=== PATIENT | male | born 1965 | race Caucasian/White ===

== ENCOUNTER 2021-11-07 15:02 | Inpatient (IN) | payer OTHER ==
[~2021-11-07] VITALS: Ht 188 cm; Wt 128.5 kg
[2021-11-07 15:18] VITALS: BP 125/90
[2021-11-07] MEDS ORDERED: PROVENTIL HFA6.7 GM INH (15:18)
[2021-11-07 16:47] VITALS: BP 133/79
[2021-11-07 17:25] LABS: ACT PARTIAL THROMBO TIME 24.9 SECONDS (20.0-32.1)
[2021-11-07 17:59] VITALS: BP 112/66
[2021-11-07 19:42] VITALS: BP 127/78
[2021-11-08 04:18] VITALS: BP 124/76
[2021-11-08 05:03] LABS: ALBUMIN 2.2 gm/dl (3.1-4.5); ALKALINE PHOSPHATASE 60 U/L (45-117); BUN 18 mg/dl (7-24); CHLORIDE 110 mmol/L (98-107); CHOLESTEROL 114 mg/dL (<200); LDL CHOLESTEROL 66 mg/dL (9-159); POTASSIUM 4.2 mmol/L (3.5-5.1); SGOT/AST 62 IU/L (3-35); SGPT/ALT 88 U/L (12-78); SODIUM 140 mmol/L (136-145); TOTAL PROTEIN 5.9 gm/dL (6.4-8.2); TRIGLYCERIDES 61 mg/dl (<150)
[2021-11-08 05:08] LABS: FREE T4 1.13 ng/dl (0.76-1.46)
[2021-11-08 06:00] LABS: BASO % 0.2 % (0.0-1.0); EOS # 0.2 10*3/uL (0.0-0.4); EOS % 1.9 % (1.0-4.0); HEMATOCRIT 37.4 % (42.0-52.0); LYMPH # 2.5 10*3/uL (1.3-4.4); LYMPH % 19.9 % (27.0-41.0); MEAN CELL VOLUME 93.7 fl (80.0-94.0); MEAN CORPUSCULAR HGB 30.8 pg (27.0-31.0); MEAN CORPUSCULAR HGB CONC 32.9 g/dl (33.0-37.0); MEAN PLATELET VOLUME 9.6 fl (9.6-12.3); MONO # 1.4 10*3/uL (0.1-1.0); MONO % 11.5 % (3.0-9.0); NEUT # 8.2 10*3/uL (2.3-7.9); NEUT % 65.6 % (47.0-73.0); PLATELET COUNT AUTOMATED 343 10*3/uL (130-400); RED BLOOD COUNT 3.99 10*6/uL (4.50-5.90); WHITE BLOOD COUNT 12.5 10*3/uL (4.8-10.8)
[2021-11-08 06:35] LABS: ACT PARTIAL THROMBO TIME 26.7 SECONDS (20.0-32.1); INTERNATIONAL NORM RATIO 0.9 (2.0-3.5)
[2021-11-08 07:49] LABS: VITAMIN D, 25-HYDROXY 12.8 ng/mL (30-100)
[2021-11-08 09:45] VITALS: BP 108/78
[2021-11-08 14:50] VITALS: BP 126/78
[2021-11-08 17:00] VITALS: BP 128/79
[2021-11-08 17:05] VITALS: BP 125/73
[2021-11-08 20:00] VITALS: BP 132/75
[2021-11-09] VITALS: BP 114/72
[2021-11-09 06:49] LABS: ALBUMIN 2.3 gm/dl (3.1-4.5); ALKALINE PHOSPHATASE 69 U/L (45-117); BUN 15 mg/dl (7-24); CHLORIDE 104 mmol/L (98-107); POTASSIUM 4.3 mmol/L (3.5-5.1); SGOT/AST 53 IU/L (3-35); SGPT/ALT 103 U/L (12-78); SODIUM 137 mmol/L (136-145); TOTAL PROTEIN 6.2 gm/dL (6.4-8.2)
[2021-11-09 07:02] LABS: BASO % 0.3 % (0.0-1.0); EOS # 0.5 10*3/uL (0.0-0.4); HEMATOCRIT 39.2 % (42.0-52.0); LYMPH # 2.2 10*3/uL (1.3-4.4); LYMPH % 18.3 % (27.0-41.0); MEAN CELL VOLUME 94.5 fl (80.0-94.0); MEAN CORPUSCULAR HGB 31.1 pg (27.0-31.0); MEAN CORPUSCULAR HGB CONC 32.9 g/dl (33.0-37.0); MEAN PLATELET VOLUME 9.4 fl (9.6-12.3); MONO # 1.5 10*3/uL (0.1-1.0); MONO % 12.2 % (3.0-9.0); NEUT # 7.8 10*3/uL (2.3-7.9); NEUT % 64.1 % (47.0-73.0); PLATELET COUNT AUTOMATED 379 10*3/uL (130-400); RED BLOOD COUNT 4.15 10*6/uL (4.50-5.90); RED CELL DISTRI WIDTH 11.9 % (0-14.5); WHITE BLOOD COUNT 12.1 10*3/uL (4.8-10.8)
[2021-11-09 08:00] VITALS: BP 122/76
[2021-11-09 11:03] VITALS: BP 126/78
[2021-11-09 12:56] LABS: BODY FLUID WBC 2568 /uL
[2021-11-09] MEDS ORDERED: NATURE'S BLEND F1 MG PO (13:15)
[2021-11-09] MEDS ORDERED: CEFTRIAXONE1 GM IJ (13:15)
[2021-11-09] MEDS ORDERED: PREMIERPRO RX500 M3 IV (13:15)
[2021-11-09] MEDS ORDERED: VITAMIN D3125 MC1 PO (13:15)
[2021-11-09 14:00] LABS: BF LYMPHOCYTES 76 %; BF MACROPHAGES 5 %; BF NEUTROPHILS 19 %
[2021-11-09 16:00] VITALS: BP 134/83
[2021-11-10 10:08] LABS: ACID FAST SPEC PROCESSING Direct Inoculation (.)
== END 2021-11-09 18:44 | disposition short-term general hospital (02) | DRG 871 ==
LOC: ED 15:02 → EDHOLD 17:24 → 5E 17:24
PROVIDERS: Emergency Medicine; Hospitalist; Internal Medicine; Internal Medicine Critical Care Medicine; ADMIT Family Medicine; ATTEND Family Medicine
PROC: 0W9900Z Drainage of Right Pleural Cavity with Drainage Device, Open Approach (ICD-10-PCS; principal; 2021-11-09)
DX: A41.9 Sepsis, unspecified organism (principal); J18.9 Pneumonia, unspecified organism; J96.01 Acute respiratory failure with hypoxia; E44.0 Moderate protein-calorie malnutrition; J90 Pleural effusion, not elsewhere classified; F17.210 Nicotine dependence, cigarettes, uncomplicated; E66.9 Obesity, unspecified; E61.1 Iron deficiency; E55.9 Vitamin D deficiency, unspecified; R73.9 Hyperglycemia, unspecified; J45.20 Mild intermittent asthma, uncomplicated; E87.8 Other disorders of electrolyte and fluid balance, not elsewhere classified; Z68.35 Body mass index [BMI] 35.0-35.9, adult; Z80.1 Family history of malignant neoplasm of trachea, bronchus and lung; Z79.51 Long term (current) use of inhaled steroids

== ENCOUNTER 2024-12-03 11:55 | Inpatient (IN) | payer OTHER ==
[~2024-12-03] VITALS: Ht 188 cm; Wt 129.8 kg
[~2024-12-03 11:55] MED LIST: CEFTRIAXONE1 GM IJ; NATURE'S BLEND F1 MG PO; PREMIERPRO RX500 M3 IV; PROVENTIL HFA6.7 GM INH; VITAMIN D3125 MC1 PO
[2024-12-03 12:00] VITALS: BP 96/56
[2024-12-03 12:31] LABS: HEMATOCRIT 38.8 % (42.0-52.0); MEAN CELL VOLUME 107.5 fl (80.0-94.0); MEAN CORPUSCULAR HGB 34.3 pg (27.0-31.0); MEAN PLATELET VOLUME 10.4 fl (9.6-12.3); NUCLEATED RED BLOOD CELL 2.1 10*3/uL (0.0-0.0); NUCLEATED RED BLOOD CELL 8.9 % (0.0-0.0); PLATELET COUNT AUTOMATED 340 10*3/uL (130-400); RED BLOOD COUNT 3.61 10*6/uL (4.50-5.90)
[2024-12-03 12:32] LABS: MANUAL DIFF REFLEX YES
[2024-12-03 12:49] VITALS: BP 110/60
[2024-12-03 12:52] LABS: PLATELET SUFFICIENCY NORMAL (NORMAL); POLYCHROMASIA SLIGHT; SCHISTOCYTES FEW; SPHEROCYTES FEW; TOTAL CELLS COUNTED 100 #CELLS
[2024-12-03 12:53] LABS: BURR CELLS MODERATE; HOWELL-JOLLY BODIES FEW
[2024-12-03 12:56] LABS: POTASSIUM 3.8 mmol/L (3.4-5.1); TOTAL PROTEIN 6.1 gm/dL (6.0-8.0)
[2024-12-03] MEDS ORDERED: Vancomycin Hydrochloride 250 ML IV ONE (13:00)
[2024-12-03] MEDS ORDERED: SODIUM CHLORIDE 0.9% 1,000 ML IV SCH ×2 (13:00→16:50)
[2024-12-03] MEDS ORDERED: AZITHROMYCIN 250 ML IV ONE (13:20)
[2024-12-03] MEDS ORDERED: CEFEPIME HCL IN DEXTROSE 5 % 50 ML IV ONE (13:25)
[2024-12-03] MEDS ORDERED: Ondansetron Hydrochloride 4 MG/2 ML VIAL IV PRN (15:15)
[2024-12-03] MEDS ORDERED: ACETAMINOPHEN 325 MG TAB PO PRN (15:15)
[2024-12-03] MEDS ORDERED: BISACODYL 10 MG SUPP R PRN (15:15)
[2024-12-03] MEDS ORDERED: TEMAZEPAM 15 MG CAP PO PRN (15:15)
[2024-12-03] MEDS ORDERED: ACETAMINOPHEN 650 MG SUPP R PRN (15:15)
[2024-12-03] MEDS ORDERED: Acetaminophen/Hydrocodone 5 MG/325 MG TABLET PO PRN (15:15)
[2024-12-03] MEDS ORDERED: BISACODYL 5 MG TAB PO PRN (15:15)
[2024-12-03] MEDS ORDERED: Magnesium Hydroxide 30 ML UDC PO PRN (15:15)
[2024-12-03] MEDS ORDERED: MORPHINE Sulfate 2 MG/ML SYR IV PRN (15:15)
[2024-12-03] MEDS ORDERED: OLANZAPINE5 MG PO (15:16)
[2024-12-03] MEDS ORDERED: FAMOTIDINE20 M1 PO (15:16)
[2024-12-03] MEDS ORDERED: ONDANSETRON HYDR8 MG PO (15:17)
[2024-12-03] MEDS ORDERED: ANASTROZOLE1 M1 PO (15:17)
[2024-12-03 15:19] VITALS: BP 107/72
[2024-12-03] MEDS ORDERED: Pantoprazole Sodium 40 MG TAB PO PRN (15:20)
[2024-12-03 17:02] VITALS: BP 111/77
[2024-12-03] MEDS ORDERED: HEPARIN SODIUM 250 ML IV SCH (17:25)
[2024-12-03 17:51] LABS: ABG BASE EXCESS -1.4 mmol/L (-2.0-3.0); ABG O2 SATURATION 85.6 % (94.0-98.0); ARTERIAL BLOOD GAS PH 7.332 (7.350-7.450)
[2024-12-03 17:55] LABS: ARTERIAL BLOOD GAS PO2 52.8 mmHg (83.0-108.0)
[2024-12-03] MEDS ORDERED: NYSTATIN 500,000 UNITS/5 ML UDC PO SCH (18:00)
[2024-12-03] MEDS ORDERED: Polyethylene Glycol 15 ML BOT OPH SCH (18:30)
[2024-12-03 20:00] VITALS: BP 110/67
[2024-12-03] MEDS ORDERED: CEFEPIME HCL IN DEXTROSE 5 % 50 ML IV SCH (20:00)
[2024-12-03] MEDS ORDERED: Doxycycline Hyclate 100 MG in SODIUM CHLORIDE 0.9% 250 ML IV SCH (22:00)
[2024-12-03] MEDS ORDERED: VANCOMYCIN/WATER FOR INJ (PEG) 400 ML IV SCH (22:00)
[2024-12-04] VITALS: BP 97/64
[2024-12-04 04:00] VITALS: BP 108/72
[2024-12-04 05:21] LABS: ALKALINE PHOSPHATASE 84 U/L (46-116); BUN 43 mg/dl (9-23); CHLORIDE 108 mmol/L (98-107); CHOLESTEROL 81 mg/dL (<200); FREE T4 0.98 ng/dl (0.89-1.76); LDL CHOLESTEROL 42 mg/dL (9-159); SGPT/ALT 47 U/L (5-49); TOTAL PROTEIN 5.2 gm/dL (6.0-8.0); TRIGLYCERIDES 140 mg/dl (<150)
[2024-12-04 06:17] LABS: MEAN CELL VOLUME 110.4 fl (80.0-94.0); MEAN CORPUSCULAR HGB 33.8 pg (27.0-31.0); MEAN CORPUSCULAR HGB CONC 30.6 g/dl (33.0-37.0); MEAN PLATELET VOLUME 10.6 fl (9.6-12.3); NUCLEATED RED BLOOD CELL 0.5 10*3/uL (0.0-0.0); NUCLEATED RED BLOOD CELL 2.5 % (0.0-0.0); PLATELET COUNT AUTOMATED 239 10*3/uL (130-400); RED BLOOD COUNT 3.17 10*6/uL (4.50-5.90); RED CELL DISTRI WIDTH 18.4 % (0-14.5); WHITE BLOOD COUNT 18.6 10*3/uL (4.8-10.8)
[2024-12-04 06:20] LABS: MANUAL DIFF REFLEX YES
[2024-12-04 06:51] LABS: BURR CELLS MODERATE; OVALOCYTES FEW; PLATELET SUFFICIENCY NORMAL (NORMAL); POLYCHROMASIA SLIGHT; TOTAL CELLS COUNTED 100 #CELLS; TOXIC GRANULATION SLIGHT
[2024-12-04 06:52] LABS: SCHISTOCYTES FEW
[2024-12-04 08:00] VITALS: BP 120/75
[2024-12-04] MEDS ORDERED: Enoxaparin Sodium 40 MG/0.4 ML SYR SC SCH (10:00)
[2024-12-04] MEDS ORDERED: ANASTROZOLE 1 MG TAB PO SCH (10:00)
[2024-12-04 12:05] VITALS: BP 134/81
[2024-12-04] MEDS ORDERED: PERFLUTREN PROTEIN-A MICROSPHR 3 ML VIAL IV ONE (13:32)
[2024-12-04] MEDS ORDERED: BARIUM SULFATE 98% 340 GM BOT PO ONE ×2 (13:40→14:07)
[2024-12-04 16:00] VITALS: BP 112/90
[2024-12-04] MEDS ORDERED: CEFEPIME HCL IN DEXTROSE 5 % 50 ML IV SCH (16:00)
[2024-12-04] MEDS ORDERED: Aloe Vera/Carboxymethylcellu 44.3 ML CANS PO PRN (16:00)
[2024-12-04] MEDS ORDERED: SODIUM CHLORIDE 0.9% 1,000 ML IV SCH (18:50)
[2024-12-04 20:00] VITALS: BP 128/75
[2024-12-05] VITALS: BP 131/81
[2024-12-05 04:00] VITALS: BP 141/85
[2024-12-05 06:12] LABS: HEMATOCRIT 34.4 % (42.0-52.0); MEAN CELL VOLUME 112.4 fl (80.0-94.0); MEAN CORPUSCULAR HGB 34.3 pg (27.0-31.0); MEAN CORPUSCULAR HGB CONC 30.5 g/dl (33.0-37.0); MEAN PLATELET VOLUME 10.8 fl (9.6-12.3); NUCLEATED RED BLOOD CELL 0.3 10*3/uL (0.0-0.0); NUCLEATED RED BLOOD CELL 1.7 % (0.0-0.0); PLATELET COUNT AUTOMATED 211 10*3/uL (130-400); RED BLOOD COUNT 3.06 10*6/uL (4.50-5.90); RED CELL DISTRI WIDTH 18.9 % (0-14.5); WHITE BLOOD COUNT 18.1 10*3/uL (4.8-10.8)
[2024-12-05 06:38] LABS: MANUAL DIFF REFLEX YES
[2024-12-05 06:44] LABS: CHLORIDE 111 mmol/L (98-107); POTASSIUM 3.7 mmol/L (3.4-5.1)
[2024-12-05 06:46] LABS: BUN 25 mg/dl (9-23)
[2024-12-05 07:42] LABS: PLATELET SUFFICIENCY NORMAL (NORMAL); POLYCHROMASIA SLIGHT; TOTAL CELLS COUNTED 100 #CELLS
[2024-12-05 08:00] VITALS: BP 124/88
[2024-12-05] MEDS ORDERED: SODIUM CHLORIDE 0.9% 10 ML SYR IV PRN (12:55)
[2024-12-05] MEDS ORDERED: HEPARIN SODIUM 300 UNITS/3 ML SYR IV SCH (12:55)
[2024-12-05 16:00] VITALS: BP 126/62
[2024-12-05] MEDS ORDERED: TOTAL PARENTERAL NUTRITION IV SCH (18:00)
[2024-12-05] MEDS ORDERED: Safflower/Soybean Oil (LIPOSYN 500 ML IV SCH (18:00)
[2024-12-05] MEDS ORDERED: MULTIVITAMIN TRACE ELEMENT IV SCH (18:00)
[2024-12-05] MEDS ORDERED: [UNRECOGNIZED DRUG - OTHER] IV SCH (18:00)
[2024-12-05 20:00] VITALS: BP 119/74
[2024-12-06] VITALS: BP 104/71
[2024-12-06 04:30] LABS: HEMATOCRIT 32.5 % (42.0-52.0); MEAN CELL VOLUME 109.8 fl (80.0-94.0); MEAN CORPUSCULAR HGB 34.5 pg (27.0-31.0); MEAN CORPUSCULAR HGB CONC 31.4 g/dl (33.0-37.0); NUCLEATED RED BLOOD CELL 0.2 10*3/uL (0.0-0.0); NUCLEATED RED BLOOD CELL 1.4 % (0.0-0.0); PLATELET COUNT AUTOMATED 201 10*3/uL (130-400); RED BLOOD COUNT 2.96 10*6/uL (4.50-5.90); RED CELL DISTRI WIDTH 19.5 % (0-14.5); WHITE BLOOD COUNT 16.3 10*3/uL (4.8-10.8)
[2024-12-06 04:33] LABS: MANUAL DIFF REFLEX YES
[2024-12-06 04:54] LABS: BUN 19 mg/dl (9-23); CHLORIDE 111 mmol/L (98-107)
[2024-12-06 05:15] LABS: TOTAL CELLS COUNTED 100 #CELLS
[2024-12-06 05:16] LABS: OVALOCYTES FEW; PLATELET SUFFICIENCY NORMAL (NORMAL); POLYCHROMASIA SLIGHT; ROULEAUX SLIGHT
[2024-12-06 08:00] VITALS: BP 130/77
[2024-12-06] MEDS ORDERED: Enoxaparin Sodium 40 MG/0.4 ML SYR SC SCH (10:00)
[2024-12-06 12:00] VITALS: BP 121/60
[2024-12-06] MEDS ORDERED: FUROSEMIDE 20 MG/2 ML VIAL IV ONE (14:10)
[2024-12-06 16:00] VITALS: BP 126/63
[2024-12-06] MEDS ORDERED: [UNRECOGNIZED DRUG - OTHER] IV SCH (18:00)
[2024-12-06] MEDS ORDERED: POTASSIUM PHOSPHATE IV SCH (18:00)
[2024-12-06] MEDS ORDERED: MULTIVITAMIN IV SCH (18:00)
[2024-12-06 20:00] VITALS: BP 144/66
[2024-12-07] VITALS: BP 119/68
[2024-12-07 05:15] LABS: BUN 19 mg/dl (9-23); CHLORIDE 107 mmol/L (98-107); POTASSIUM 4.1 mmol/L (3.4-5.1)
[2024-12-07 05:24] LABS: HEMATOCRIT 32.8 % (42.0-52.0); MEAN CELL VOLUME 111.6 fl (80.0-94.0); MEAN CORPUSCULAR HGB 34.7 pg (27.0-31.0); MEAN CORPUSCULAR HGB CONC 31.1 g/dl (33.0-37.0); MEAN PLATELET VOLUME 11.2 fl (9.6-12.3); NUCLEATED RED BLOOD CELL 0.2 10*3/uL (0.0-0.0); NUCLEATED RED BLOOD CELL 1.3 % (0.0-0.0); PLATELET COUNT AUTOMATED 201 10*3/uL (130-400); RED BLOOD COUNT 2.94 10*6/uL (4.50-5.90); RED CELL DISTRI WIDTH 19.3 % (0-14.5); WHITE BLOOD COUNT 15.1 10*3/uL (4.8-10.8)
[2024-12-07 05:34] LABS: MANUAL DIFF REFLEX YES
[2024-12-07 06:04] LABS: PLATELET SUFFICIENCY NORMAL (NORMAL); TOTAL CELLS COUNTED 100 #CELLS
[2024-12-07 06:05] LABS: POLYCHROMASIA SLIGHT
[2024-12-07 08:00] VITALS: BP 102/62
[2024-12-07 10:10] LABS: ABG BASE EXCESS 3.9 mmol/L (-2.0-3.0); ABG O2 SATURATION 90.5 % (94.0-98.0); ARTERIAL BLOOD GAS PH 7.432 (7.350-7.450); ARTERIAL BLOOD GAS PO2 55.7 mmHg (83.0-108.0)
[2024-12-07] MEDS ORDERED: FUROSEMIDE 20 MG/2 ML VIAL IV ONE (10:40)
[2024-12-07] MEDS ORDERED: Aloe Vera/Carboxymethylcellu 44.3 ML CANS PO SCH (11:00)
[2024-12-07] MEDS ORDERED: Aloe Vera/Carboxymethylcellu 44.3 ML CANS PO PRN (14:56)
[2024-12-07 16:00] VITALS: BP 104/74; BP 79/85
[2024-12-07] MEDS ORDERED: MULTIVITAMIN IV SCH (18:00)
[2024-12-07] MEDS ORDERED: POTASSIUM PHOSPHATE IV SCH (18:00)
[2024-12-07] MEDS ORDERED: [UNRECOGNIZED DRUG - OTHER] IV SCH (18:00)
[2024-12-07 20:00] VITALS: BP 120/66
[2024-12-08] VITALS: BP 105/42
[2024-12-08 08:00] VITALS: BP 125/74
[2024-12-08] MEDS ORDERED: FOAM BANDAGE HEEL T ONE (08:41)
[2024-12-08] MEDS ORDERED: FOAM BANDAGE 1 EACH BANDAGE T ONE (08:41)
[2024-12-08 09:51] LABS: ALKALINE PHOSPHATASE 83 U/L (46-116); BUN 19 mg/dl (9-23); CHLORIDE 106 mmol/L (98-107); POTASSIUM 3.5 mmol/L (3.4-5.1); SGPT/ALT 31 U/L (5-49); TOTAL PROTEIN 5.1 gm/dL (6.0-8.0)
[2024-12-08] MEDS ORDERED: MORPHINE Sulfate 2 MG/ML SYR IV ONE (09:55)
[2024-12-08] MEDS ORDERED: diazePAM 10 MG/2 ML SYR IV ONE (09:55)
[2024-12-08] MEDS ORDERED: diphenhydrAMINE hydrochloride 50 MG/ML VIAL IV ONE (10:30)
[2024-12-08 12:00] VITALS: BP 124/76
[2024-12-08] MEDS ORDERED: FUROSEMIDE 40 MG/4 ML VIAL IV ONE (13:55)
[2024-12-08] MEDS ORDERED: diazePAM 10 MG/2 ML SYR IV PRN (15:15)
[2024-12-08 16:00] VITALS: BP 118/73
[2024-12-08] MEDS ORDERED: POTASSIUM PHOSPHATE IV SCH (18:00)
[2024-12-08] MEDS ORDERED: [UNRECOGNIZED DRUG - OTHER] IV SCH (18:00)
[2024-12-08] MEDS ORDERED: MULTIVITAMIN IV SCH (18:00)
[2024-12-08 20:00] VITALS: BP 136/72
[2024-12-08] MEDS ORDERED: VANCOMYCIN/WATER FOR INJ (PEG) 300 ML IV SCH (22:00)
[2024-12-09] VITALS: BP 121/88
== END 2024-12-09 16:10 | disposition hospice, home (50) | DRG 871 ==
LOC: ED 11:55 → EDHOLD 13:47 → ICCU 13:47 → EDHOLD 15:19 → ICCU 15:48 → 4E 12-05 14:08
PROVIDERS: Internal Medicine; Student in an Organized Health Care Education/Training Program; ADMIT Internal Medicine; ATTEND Internal Medicine
PROC: 5A09357 Assistance with Respiratory Ventilation, Less than 24 Consecutive Hours, Continuous Positive Airway Pressure (ICD-10-PCS; principal; 2024-12-04)
PROC: 5A0935A Assistance with Respiratory Ventilation, Less than 24 Consecutive Hours, High Flow/Velocity Cannula (ICD-10-PCS; 2024-12-04)
PROC: BD11YZZ Fluoroscopy of Esophagus using Other Contrast (ICD-10-PCS; 2024-12-04)
PROC: 5A0935A Assistance with Respiratory Ventilation, Less than 24 Consecutive Hours, High Flow/Velocity Cannula (ICD-10-PCS; 2024-12-07)
DX: A41.9 Sepsis, unspecified organism (principal); I21.A1 Myocardial infarction type 2; J69.0 Pneumonitis due to inhalation of food and vomit; J96.01 Acute respiratory failure with hypoxia; N17.0 Acute kidney failure with tubular necrosis; C79.31 Secondary malignant neoplasm of brain; C79.51 Secondary malignant neoplasm of bone; E87.1 Hypo-osmolality and hyponatremia; C78.00 Secondary malignant neoplasm of unspecified lung; J91.0 Malignant pleural effusion; D53.9 Nutritional anemia, unspecified; C50.929 Malignant neoplasm of unspecified site of unspecified male breast; R65.20 Severe sepsis without septic shock; B37.9 Candidiasis, unspecified; G51.0 Bell's palsy; Z66 Do not resuscitate; R73.9 Hyperglycemia, unspecified; R74.01 Elevation of levels of liver transaminase levels; R33.9 Retention of urine, unspecified; J45.909 Unspecified asthma, uncomplicated; Z20.822 Contact with and (suspected) exposure to COVID-19; E66.9 Obesity, unspecified; Z90.49 Acquired absence of other specified parts of digestive tract; Z87.891 Personal history of nicotine dependence; Z80.1 Family history of malignant neoplasm of trachea, bronchus and lung; Z68.36 Body mass index [BMI] 36.0-36.9, adult